=== PATIENT | female | born 1960 | race Caucasian/White ===

== ENCOUNTER 2020-02-06 09:53 | Outpatient (CLI) | payer OTHER, SELFPAY ==
--- NOTE | 2020-02-06 09:57 | MM_ITS ---
WS: [id number] Exam: [place] [id number] Date/Time of Exam: 02/06/2020 10:01 AM Reason For Exam: SCREENING VIEWS: MLO and CC views both breasts. Comparison made with prior exam of 12/27/2017. Findings: There was no sign of mass, architectural distortion or suspicious calcification in either breast. Sc attered fibroglandular densities MM/[place] [id number] Impression: BI-RADS: 2-Benign FOLLOW-UP: 1 Year Follow-up This mammogram was also analyzed by the Computer Aided Detection System R2 Imag e Facial Operator.
== END 2020-02-06 09:54 | disposition home or self-care (01) ==
LOC: RADSHAW 09:55
PROVIDERS: Family Provider Family Medicine; PCP Family Medicine; Visit Provider Obstetrics & Gynecology
DX: Z12.31 Encounter for screening mammogram for malignant neoplasm of breast (principal)
CPT/HCPCS: 77067

== ENCOUNTER → 2020-03-20 00:01 | Outpatient (BNVA) | payer OTHER, SELFPAY | PROVIDERS: Family Provider Family Medicine; PCP Family Medicine; Visit Provider Obstetrics & Gynecology | DX: Z01.419 Encounter for gynecological examination (general) (routine) without abnormal findings (principal) | CPT/HCPCS: 82270 ==

== ENCOUNTER → 2021-04-08 14:50 | Outpatient (BNVA) | payer OTHER, SELFPAY | PROVIDERS: Family Provider Family Medicine; PCP Family Medicine; Visit Provider Nurse Practitioner Women's Health | DX: Z01.419 Encounter for gynecological examination (general) (routine) without abnormal findings (principal) | CPT/HCPCS: 87624 ==

== ENCOUNTER 2021-04-18 11:47 | Outpatient (CLI) | payer OTHER, SELFPAY ==
--- NOTE | 2021-04-18 11:55 | MM_ITS ---
WS: [id number] BILATERAL DIGITAL SCREENING MAMMOGRAPHY WITH CAD CLINICAL INFORMATION: SCREENING HISTORY: Screening mammogram. No current complaints. COMPARISON: February 06, 2020 TECHNIQUE: Bilateral CC and MLO views. FINDINGS: Scattered fibroglandular densities bilaterally. Punctate calcification left breast. No suspicious foc al mass, asymmetry, calcifications, or architectural distortion. No evidence of malignancy. MM/[place] [id number] IMPRESSION: BI-RADS: 2-Benign FOLLOW UP: 1 Year Follow-up Recommend return to annual screening mammography.
== END 2021-04-18 11:48 | disposition home or self-care (01) ==
LOC: RADSHAW 11:53
PROVIDERS: PCP Family Medicine; Visit Provider Family Medicine
DX: Z12.31 Encounter for screening mammogram for malignant neoplasm of breast (principal)
CPT/HCPCS: 77067

== ENCOUNTER → 2021-05-29 10:21 | Outpatient (BNVA) | payer OTHER, SELFPAY | PROVIDERS: PCP Family Medicine; Visit Provider Family Medicine | DX: M16.11 Unilateral primary osteoarthritis, right hip (principal); M25.551 Pain in right hip | CPT/HCPCS: 73502 ==

== ENCOUNTER 2021-08-04 06:00 | Outpatient (RCR) | payer OTHER, SELFPAY | END 2021-08-19 23:59 | disposition home or self-care (01) | LOC: GPT 06:00 | PROVIDERS: PCP Family Medicine; Referring Provider Orthopaedic Surgery; Visit Provider Orthopaedic Surgery | DX: M16.11 Unilateral primary osteoarthritis, right hip (principal) | CPT/HCPCS: 97110; 97162 ==

== ENCOUNTER 2021-08-20 06:00 | Outpatient (RCR) | payer OTHER, SELFPAY | END 2021-09-09 23:59 | disposition home or self-care (01) | LOC: GPT 06:00 | PROVIDERS: PCP Family Medicine; Referring Provider Orthopaedic Surgery; Visit Provider Orthopaedic Surgery | DX: M16.11 Unilateral primary osteoarthritis, right hip (principal) | CPT/HCPCS: 97110; 97112; 97140 ==

== ENCOUNTER → 2022-03-09 13:26 | Outpatient (BNVA) | payer OTHER, SELFPAY | PROVIDERS: PCP Family Medicine; Visit Provider Family Medicine | DX: R22.30 Localized swelling, mass and lump, unspecified upper limb (principal) | CPT/HCPCS: 73130 ==

== ENCOUNTER 2022-04-27 12:18 | Outpatient (CLI) | payer OTHER, SELFPAY ==
--- NOTE | 2022-04-27 13:11 | MM_ITS ---
WS: [id number] BILATERAL 3D TOMOSYNTHESIS DIGITAL SCREENING MAMMOGRAPHY WITH CAD CLINICAL INFORMATION: Z12.39 - Encounter for other screening for malignant neop... HISTORY: Screening mammogram. No current complaints. COMPARISON: 2021 TECHNIQUE: Bilateral CC and MLO views. FINDINGS: The breasts are composed of heterogeneous fibroglandular density tissue, which can limit the detectio n of small underlying mass lesions. No suspicious mass, asymmetry, calcifications, or architectural d istortion. No evidence of malignancy. A few incidental punctate calcifications. MM/[place] [id number] IMPRESSION: BI-RADS: 2-Benign FOLLOW UP: 1 Year Follow-up Recommend return to annual screening mammography.
== END 2022-04-27 12:19 | disposition home or self-care (01) ==
LOC: RAD 12:19
PROVIDERS: PCP Family Medicine; Visit Provider Nurse Practitioner Women's Health
DX: Z12.31 Encounter for screening mammogram for malignant neoplasm of breast (principal)
CPT/HCPCS: 77063; 77067

== ENCOUNTER 2023-04-28 12:43 | Outpatient (CLI) | payer OTHER, SELFPAY ==
--- NOTE | 2023-04-28 13:00 | XR_ITS ---
WS: [id number] DEXA (DUAL ENERGY X-RAY ABSORPTIOMETRY) Bone mineral density was performed using a Sulia machine. HISTORY: Z78.0 - Asymptomatic menopausal state COMPARISON: None available. Lumbar spine BMD (L1-L4): 1.143 g/cm2 T score: -0.3 Z score: -0.3 Total hip BMD: Left: 0.866 (g/cm2). T score: -1.1 (no units) Z score: -1.0 (no units) Left forearm BMD: 0.914 g/cm2. T score: 0.4 Z score: 1.4 10 year probability of a major osteoporotic fracture is 7.8%. IMPRESSION: OSTEOPENIA based upon the WHO classification for females.
--- NOTE | 2023-04-28 13:01 | MM_ITS ---
WS: [email or web address] BILATERAL 3D TOMOSYNTHESIS DIGITAL SCREENING MAMMOGRAPHY WITH CAD CLINICAL INFORMATION: Z12.31 - Encounter for screening mammogram for malignant ... HISTORY: Screening mammogram. No current complaints. COMPARISON: 2014 TECHNIQUE: Bilateral CC and MLO views. FINDINGS: The breasts are composed of heterogeneous fibroglandular density tissue, which can limit the detectio n of small underlying mass lesions. Increasing ovoid slightly spiculated asymmetric density measuring 9 mm RIGHT breast best seen on the cc view near the 12 o'clock position. Recommend RIGHT breast diag nostic mammography and ultrasound if persistent. LEFT breast is unremarkable. IMPRESSION: MM/[place] [id number] BI-RADS: 0-Incomplete: Need additional imaging evaluation FOLLOW UP: Need Additional Imaging Recommend RIGHT breast diagnostic mammography and ultrasound if persistent.
== END 2023-04-28 12:44 | disposition home or self-care (01) ==
LOC: RAD 12:43
PROVIDERS: PCP Family Medicine; Visit Provider Nurse Practitioner Women's Health
DX: Z12.31 Encounter for screening mammogram for malignant neoplasm of breast (principal); Z13.820 Encounter for screening for osteoporosis; Z78.0 Asymptomatic menopausal state; R92.323 Mammographic fibroglandular density, bilateral breasts; N64.89 Other specified disorders of breast
CPT/HCPCS: 77063; 77067; 77080

== ENCOUNTER → 2023-04-29 10:45 | Outpatient (BNVA) | payer OTHER, SELFPAY | PROVIDERS: PCP Family Medicine; Visit Provider Family Medicine | DX: D34 Benign neoplasm of thyroid gland (principal); T78.40XA Allergy, unspecified, initial encounter; Z79.899 Other long term (current) drug therapy | CPT/HCPCS: 80053; 84439; 84443; 85025 ==

== ENCOUNTER 2023-05-13 08:58 | Outpatient (CLI) | payer OTHER, SELFPAY ==
--- NOTE | 2023-05-13 09:00 | MM_ITS ---
WS: [id number] RIGHT 3D TOMOSYNTHESIS DIGITAL MAMMOGRAPHY WITH CAD CLINICAL INFORMATION: R92.8 - Other abnormal and inconclusive findings on diagn... HISTORY: Additional views COMPARISON: 2023 TECHNIQUE: 3 views of the right breast were obtained. FINDINGS: Scattered fibroglandular densities of the right breast. Small ovoid asymmetry is again seen posterior to the nipple and near the 12 o'clock position. This partially compresses out on the spot compressio n views. Ultrasound is pending. Ultrasound is pending. ULTRASOUND BREAST RIGHT TECHNIQUE: Ultrasound right breast focused area of concern. CLINICAL INFORMATION: R92.8 - Other abnormal and inconclusive findings on diagn... FINDINGS: Ultrasound RIGHT breast 11-1 o'clock position and posterior to the nipple. A few incidental dilated d ucts. No suspicious cystic or solid lesions. No suspicious lesions to target for biopsy. IMPRESSION: MM/[place] [id number] BI-RADS: 2-Benign FOLLOW UP: 1 Year Follow-up Recommend return to annual screening mammography.
--- NOTE | 2023-05-13 09:30 | US_ITS ---
WS: [email or web address] RIGHT 3D TOMOSYNTHESIS DIGITAL MAMMOGRAPHY WITH CAD CLINICAL INFORMATION: R92.8 - Other abnormal and inconclusive findings on diagn... HISTORY: Additional views COMPARISON: 2023 TECHNIQUE: 3 views of the right breast were obtained. FINDINGS: Scattered fibroglandular densities of the right breast. Small ovoid asymmetry is again seen posterior to the nipple and near the 12 o'clock position. This partially compresses out on the spot compressio n views. Ultrasound is pending. Ultrasound is pending. ULTRASOUND BREAST RIGHT TECHNIQUE: Ultrasound right breast focused area of concern. CLINICAL INFORMATION: R92.8 - Other abnormal and inconclusive findings on diagn... FINDINGS: Ultrasound RIGHT breast 11-1 o'clock position and posterior to the nipple. A few incidental dilated d ucts. No suspicious cystic or solid lesions. No suspicious lesions to target for biopsy. IMPRESSION: US/US breast RT limited* [id number] BI-RADS: 2-Benign FOLLOW UP: 1 Year Follow-up Recommend return to annual screening mammography.
== END 2023-05-13 08:59 | disposition home or self-care (01) ==
PROVIDERS: PCP Family Medicine; Visit Provider Nurse Practitioner Women's Health
DX: R92.321 Mammographic fibroglandular density, right breast (principal); N64.89 Other specified disorders of breast
CPT/HCPCS: 76642; 77061; G0279

== ENCOUNTER 2023-06-29 06:00 | Outpatient (RCR) | payer OTHER, SELFPAY | END 2023-07-20 23:59 | disposition home or self-care (01) | LOC: GPT 06:00 | PROVIDERS: Visit Provider Physician Assistant Surgical | DX: Z47.1 Aftercare following joint replacement surgery (principal); Z96.641 Presence of right artificial hip joint | CPT/HCPCS: 97110; 97140; 97161 ==

== ENCOUNTER 2023-07-21 06:00 | Outpatient (RCR) | payer OTHER, SELFPAY | END 2023-08-05 23:59 | disposition home or self-care (01) | LOC: GPT 06:00 | PROVIDERS: Visit Provider Physician Assistant Surgical | DX: Z47.1 Aftercare following joint replacement surgery (principal); Z96.651 Presence of right artificial knee joint | CPT/HCPCS: 97110; 97112 ==

== ENCOUNTER 2023-08-25 09:56 | Emergency (ER) | payer OTHER, SELFPAY ==
[2023-08-25 10:00] VITALS: BP 126/76; PULSE 100; TEMP 36.8; O2SAT 94; BMI 33.4
[2023-08-25 11:04] VITALS: BP 122/68; PULSE 86; RESP 18; O2SAT 92
--- NOTE | 2023-08-25 11:05 | CT_ITS ---
WS: [id number] CT ABDOMEN AND PELVIS WITH CONTRAST HISTORY: abd pain TECHNIQUE: Imaging performed of the abdomen and pelvis with IV contrast. Single phase imaging of the abdomen. Coronal and sagittal reformats are submitted. All CT scans at [facility] use at [address] one of these dose optimization techniques: automated exposure control; mA and/or kV adjustment per patient size (includes targeted exams where dose is matched to clinical indication); or iterative re construction. IV CONTRAST: Omnipaque 350; 100 mL IV. Oral contrast: No DLP: 1010.31 mGy.cm COMPARISON: None available. Lower thorax: Mild atelectasis and dependent changes at the lung bases. Heart is normal size. No hiat al hernia. Liver/biliary system: Normal size with no intrahepatic dilatation. Gallbladder: Normal. No gallstones or wall thickening. No pericholecystic fluid. Pancreas: Normal size pancreas and pancreatic duct. No adjacent inflammation. Spleen: Spleen is measuring top normal size at 13.0 cm. There are a few granulomata. Adrenal glands: Enlarged RIGHT adrenal gland with heterogeneity. Adrenal gland measures 4.6 x 3.4 cm and is well-circumscribed. There is an area of increased attenuation within the central enlarged adre nal gland. Hounsfield units are significantly elevated to 55. There is not a lot of adjacent soft tis mono stranding. LEFT adrenal gland is normal. Right kidney: Normal. Left kidney: Normal. Aorta: Mild atherosclerosis with no aneurysm. Good opacification of the celiac axis and SMA. Lymphadenopathy: None. Free fluid: None. GI tract: Normal stomach. No small bowel obstruction. No colitis. RIGHT colonic constipation. No appe ndicitis. Abdominal wall: Fat containing umbilical hernia. Pelvis: No free fluid or adenopathy within the pelvis. Bones: Prior RIGHT hip arthroplasty. CT/CT abdomen pelvis w con* [id number] IMPRESSION: 1. No GI tract obstruction. 2. No renal obstruction. 3. RIGHT adrenal mass measures 4.6 x 3.4 cm with mixed attenuation. There is a n area of increased attenuation centrally which could represent an area of adre nal hemorrhage. This can be further evaluated on a nonemergent basis by MRI or CT adrenal protocol. 4. Mild atherosclerosis aorta. 5. No adenopathy. 6. Spleen is top normal size.
--- NOTE | 2023-08-25 11:05 | XR_ITS ---
WS: [id number] XR chest 1V portable [id number] REASON FOR EXAM: fever FINDINGS: Moderate tortuosity of the thoracic aorta. Heart at the upper limits of normal. Calcified granulomatous disease in both hemithoraces. No acute pulmonary parenchymal or pleural abnormality. No significant abnormality of the bony thorax. XR/XR chest 1V portable [id number] IMPRESSION: No acute chest abnormality.
[2023-08-25 11:27] LABS: Basophils % 0.7 %; Hematocrit 42.9 % (36-47); Lymphocytes # 0.9 10^3/uL (0.8-4.8); Lymphocytes % 33.2 %; Mean Corpuscular Hemoglobin 29.4 pg (27-33); Mean Corpuscular Volume 86.5 fl (85-98); Mean Platelet Volume 12.2 fL (7.4-10.4); Monocytes # 0.2 10^3/uL (0.2-0.9); Monocytes % 6.4 %; Neutrophils # 1.66 10^3/uL (1.8-7.7); Neutrophils % 58.6 %; Nucleated Red Blood Cells % 0 %; Platelet Count 84 10^3/cmm (157-399); Red Blood Count 4.96 10^6/uL (3.85-5.65); Red Cell Distribution Width 13.2 % (12.1-15.1); White Blood Count 2.83 10^3/uL (3.29-11.43)
[2023-08-25 11:29] LABS: Add Urine Microscopic? NO; Charge for UA Resulting for Rev
[2023-08-25 11:34] VITALS: BP 101/69; PULSE 93; O2SAT 90
[2023-08-25 11:39] LABS: Bilirubin Urine Neg (Negative); Blood Urine Neg (Negative); Glucose Urine UA Norm (Normal); Ketones Urine Negative (Negative); Leukocyte Esterase Urine Negative (Negative); Nitrate Urine Negative (Negative); Protein Urine Neg (Negative); Sulfosalicylic Acid Urine Negative (Negative); Urine Appearance Clear (CLEAR); Urine Color Yellow (Yellow); Urobilinogen Urine Norm (Negative); pH Urine 8 (5-7)
[2023-08-25 11:47] LABS: Alanine Aminotransferase 179 U/L (0-33); Albumin Level 3.9 g/dL (3.5-5.2); Alkaline Phosphatase 323 U/L (35-105); Anion Gap 17.4 (5-19); Aspartate Amino Transferase 122 U/L (0-32); Blood Urea Nitrogen 10 mg/dL (8-23); Calcium 8.7 mg/dL (8.5-10.5); Carbon Dioxide 24 mmol/L (22-29); Chloride 92 mmol/L (98-107); Creatinine Clr Calc Pharmacy 92.3856; Globulin 2.8 g/dL (1.3-4.6); Glomerular Filtration Rate 73.2 mL/min (90-130); Glucose 103 mg/dL (65-115); Lipase 29 U/L (13-60); Osmolality Calculated 269 mOsm/kg (285-295); Potassium 3.4 mmol/L (3.5-5.1); Sodium 130 mmol/L (136-145); Total Bilirubin 0.9 mg/dL (0.15-1.2); Total Protein 6.7 g/dL (6.6-8.7)
--- NOTE | 2023-08-25 11:51 | ED_ITS ---
HPI - Abdominal Pain 2 General: Chief Complaint: Abdominal Pain Stated Complaint: fever, n/v, abd pain Time Seen by Provider: 08/25/23 11:01 Source: patient Mode of arrival: ambulatory Limitations: no limitations History of Present Illness: 62-year-old female who states that over the last 3 to 4 days she has not been feeling well states she has had some nausea vomiting abdominal cramping she is also had a slight cough and fevers with bodyaches. She denies any dysuria states her abdominal pain is diffuse rates it a 2 out of 10. Denies sore throat denies any sick contacts states she has been febrile at home she is afebrile here. Denies any worse improved factors. Associated Symptoms: Reports chills, fever(s), nausea and vomiting; Denies diarrhea and dysuria Review of Systems 2 Const: Reports: fever(s), chills and body aches; Denies: change in appetite Eyes: Denies: blurry vision or eye discomfort ENMT: Denies: throat pain or dental pain Card: Denies: chest pain Resp: Denies: dyspnea GI: Reports: abdominal pain, nausea and vomiting; Denies: diarrhea : Denies: dysuria Musc: Denies: neck pain or back pain Skin/Breast: Denies: rash Neuro: Denies: headache(s) PFSH ED 2 PFSH: Medical History Cystocele with rectocele No pertinent past medical history neghx: dm,thyroid,dvt/pe PCP: Dr. Shelby Herpes zoster without complication (08/10/18) Hypertension Surgical History History of hip replacement (~09/18/21) Right hip S/P LASIK surgery of both eyes (~2008) History of thyroidectomy, subtotal (~12/1990) Right; Tyroid adenoma. H/O section (~02/1986) Performed by Dr. Head in [place], [place]. S/P endometrial ablation (12/03/06) Hysteroscopic with [employer]. Diagnosis: Menorrhagia, dysmenorrhea. Performed by Dr. Vic Christine at [facility] in [place], [place]. S/P endometrial ablation (~2004) [employer]. Procedure terminated and not completed. Performed by Dr. Billingsley. S/P ovarian cystectomy (~1966) Right ruptured ovarian cyst. S/P conization of cervix (~1991) Family History Father Hypertension Diabetes Mother Hypercholesteremia Heart disease Denies family history of Colon cancer Ovarian cancer Breast cancer Uterine cancer Thyroid disease Stroke Physical Exam 2 Const: COMMON NORMALS: no acute distress, patient oriented x3 and healthy appearing HENMT: COMMON NORMALS: normocephalic and atraumatic HEAD & SCALP: n ormocephalic and atraumatic Neck/C-Spine: COMMON NORMALS: full ROM and supple Chest: COMMONS NORMALS: normal inspection of the chest Resp: COMMON NORMALS: normal respiratory effort, No retractions, No use of accessory muscles and clear to auscultation bilaterally AUSCULTATION: clear to auscultation bilaterally Cardio: COMMON NORMALS: regular rate, regular rhythm and No murmurs present (Cardio) RATE: regular rate RHYTHM: regular rhythm GI: COMMON NORMALS: Normal to inspection, nondistended, normoactive bowel sounds present, Soft to palpation, non-tender and no masses PALPATION: Yes Soft to palpation Extremity: COMMON NORMALS: normal to inspection and full ROM Neuro: COMMON NORMALS: patient oriented x3, moves all extremities and no focal motor deficits Psych: COMMON NORMALS: mental status grossly normal, Normal thought process present and cooperative THOUGHT PROCESS: Normal thought process present Skin: COMMON NORMALS: no rashes or lesions noted and no wounds GENERAL SKIN EXAM: no rashes or lesions noted Course 2 Vital Signs: Vital signs: Vital Signs Temperature 98.2 F 08/25/23 10:00 Pulse Rate 94 08/25/23 13:36 Respiratory Rate 18 08/25/23 13:36 Blood Pressure 109/65 08/25/23 13:36 Pulse Oximetry 96 08/25/23 13:36 Oxygen Delivery Me thod Room Air 08/25/23 12:30 MDM - Abdominal Pain Medical Decision Making Patient presents with fever body aches along with some abdominal pain vomiting she is also had a cough is likely a viral syndrome imaging shows no signs of infection urine analysis was normal did have a slight leukopenia pi?a could be due from the viral syndrome I did inform her of the adrenal mass seen on the CAT scan she is to follow-up with PCP for the adrenal mass to recheck her WBC. I informed her she worsen she is return she understands agrees to plan Medical Records I reviewed the patient's medical records. Lab Data I reviewed the patient's lab results. 08/25/23 11:15 08/25/23 11:15 Labs/Radiology: Radiology Impressions Abdomen/Pelvis CT 08/25/23 11:05 IMPRESSION: 1. No GI tract obstruction. 2. No renal obstruction. 3. RIGHT adrenal mass measures 4.6 x 3.4 cm with mixed attenuation. There is an area of increased attenuation centrally which could represent an area of adrenal hemorrhage. This can be further evaluated on a nonemergent basis by MRI or CT adrenal protocol. 4. Mild atherosclerosis aorta. 5. No adenopathy. 6. Spleen is top normal size. Chest X-Ray 08/25/23 11:05 IMPRESSION: No acute chest abnormality. Laboratory Results WBC 2.83 10^3/uL (3.29-11.43) L 08/25/23 11:15 RBC 4.96 10^6/uL (3.85-5.65) 08/25/23 11:15 Hgb 14.60 g/dL (11.27-16.99) 08/25/23 11:15 Hct 42.9 % (36-47) 08/25/23 11:15 MCV 86.5 fl (85-98) 08/25/23 11:15 MCH 29.4 pg (27-33) 08/25/23 11:15 MCHC 34.0 g/dL (30-55) 08/25/23 11:15 RDW 13.2 % (12.1-15.1) 08/25/23 11:15 Plt Count 84 10^3/cmm (157-399) L 08/25/23 11:15 MPV 12.2 fL (7.4-10.4) H 08/25/23 11:15 Neut % (Auto) 58.6 % 08/25/23 11:15 Lymph % (Auto) 33.2 % 08/25/23 11:15 Lipscomb % (Auto) 6.4 % 08/25/23 11:15 Eos % (Auto) 0.0 % 08/25/23 11:15 Baso % (Auto) 0.7 % 08/25/23 11:15 Neut # (Auto) 1.66 10^3/uL (1.8-7.7) L 08/25/23 11:15 Lymph # (Auto) 0.9 10^3/uL (0.8-4.8) 08/25/23 11:15 Lipscomb # (Auto) 0.2 10^3/uL (0.2-0.9) 08/25/23 11:15 Eos # (Auto) 0.0 10^3/uL (0.0-0.8) 08/25/23 11:15 Baso # (Auto) 0.0 10^3/uL (0.0-0.1) 08/25/23 11:15 Nucleated RBC % (auto) 0 % 08/25/23 11:15 Nucleated RBCs # 0.0 /100WBC 08/25/23 11:15 Sodium 130 mmol/L (136-145) L 08/25/23 11:15 Potassium 3.4 mmol/L (3.5-5.1) L 08/25/23 11:15 Chloride 92 mmol/L (98-107) L 08/25/23 11:15 Carbon Dioxide 24 mmol/L (22-29) 08/25/23 11:15 Anion Gap 17.4 (5-19) 08/25/23 11:15 BUN 10 mg/dL (8-23) 08/25/23 11:15 Creatinine 0.8 mg/dL (0.5-0.9) 08/25/23 11:15 GFR Calculation 73.2 mL/min (90-130) L 08/25/23 11:15 Glucose 103 mg/dL (65-115) 08/25/23 11:15 Calculated Osmolality 269 mOsm/kg (285-295) L 08/25/23 11:15 Lactic Acid 1.0 mmol/L (0.5-2.2) 08/25/23 11:15 Calcium 8.7 mg/dL (8.5-10.5) 08/25/23 11:15 Total Bilirubin 0.9 mg/dL (0.15-1.2) 08/25/23 11:15 AST 122 U/L (0-32) H 08/25/23 11:15 ALT 179 U/L (0-33) H 08/25/23 11:15 Alkaline Phosphatase 323 U/L (35-105) H 08/25/23 11:15 Total Protein 6.7 g/dL (6.6-8.7) 08/25/23 11:15 Albumin 3.9 g/dL (3.5-5.2) 08/25/23 11:15 Globulin 2.8 g/dL (1.3-4.6) 08/25/23 11:15 Lipase 29 U/L (13-60) 08/25/23 11:15 Urine Color Yellow (Yellow) 08/25/23 11:15 Urine Appearance Clear (CLEAR) 08/25/23 11:15 Urine pH 8 (5-7) H 08/25/23 11:15 Ur Specific [place] 1.010 (1.005-1.030) 08/25/23 11:15 Urine Protein Neg (Negative) 08/25/23 11:15 Urine Glucose (UA) Norm (Normal) 08/25/23 11:15 Urine Ketones Negative (Negative) 08/25/23 11:15 Urine Blood Neg (Negative) 08/25/23 11:15 Urine Nitrate Negative (Negative) 08/25/23 11:15 Urine Bilirubin Neg (Negative) 08/25/23 11:15 Prot Sulfosalicylic Acd Negative (Negative) 08/25/23 11:15 Urine Urobilinogen Norm mg/dL (Negative) 08/25/23 11:15 Ur Leukocyte Esterase Negative (Negative) 08/25/23 11:15 SARS-CoV-2 Ag (Rapid) negative (Negative) 08/25/23 11:15 All radiology interpretation(s) finalized by discharge Discharge Plan Discharge Patient Disposition: Home Clinical Impression: Abdominal pain, Viral syndrome Condition: Stable Prescriptions: New ondansetron 4 mg tablet,disintegrating 4 mg PO Q6H PRN (Reason: nausea and vomiting) Qty: 14 0RF No Action coenzyme Q10 [Co Q-10] 200 mg capsule 200 mg PO DAILY paroxetine HCl [Paxil] 20 mg tablet 20 mg PO DAILY Qty: 30 11RF estradiol [Estrace] 0.01 % (0.1 mg/gram) cream 1 g vaginal .2-3 times weekly Qty: 42.5 3RF Rx Instructions: space out doses olopatadine [Eye Allergy Itch-Redness Rlf] 0.1 % drops 1 drp ophthalmic (eye) BID PRN (Reason: ALLERGIES) Rx Instructions: separate doses by at least 6-8 hours ibuprofen 200 mg tablet 600 mg PO Q6H PRN (Reason: Pain) loratadine [Claritin] 10 mg tablet 10 mg PO DAILY PRN (Reason: ALLERGIES) potassium gluconate 595 mg (99 mg) tablet 595 mg PO DAILY diphenhydramine HCl [Benadryl] 25 mg capsule 25 mg PO Q8H PRN (Reason: ALLERGIES) lisinopril 10 mg tablet 10 mg PO DAILY Qty: 90 3RF triamterene-hydrochlorothiazid 37.5-25 mg tablet 1 tab PO DAILY Qty: 90 3RF Glucosamine-Chondroitin Complx 500-400 mg Tablet 1 tab PO DAILY Calcium 600 + D(3) 600 mg-10 mcg (400 unit) Tablet 1 tab PO DAILY One Daily For Women 18-0.4 mg Tablet 1 tab PO DAILY Discharge Orders: Discharge ED (Routine); Ordered 08/25/23 Ordered By: Selene Mendiola Referrals: Robert Guzman DO [Primary Care Provider] - 4-7 days Discharge Diet: Advance as tolerated Discharge Activity: Resume usual activity Patient Instructions: Abdominal Pain (ED) Coding Level of Care Code 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
[2023-08-25 11:52] LABS: Slide Review Slide Review Perform
[2023-08-25] MEDS: sodium chloride 0.9% 1,000 ML 999 ML IV (11:56)
[2023-08-25 12:00] VITALS: PULSE 89; O2SAT 90
[2023-08-25] MEDS: iohexol 350 mg/mL 500 mL Btl (per mL) IV (12:00)
[2023-08-25] MEDS: ondansetron 2 mg/ML SDV 2 mL 4 MG IVP (12:28)
[2023-08-25] MEDS: ketorolac 30 mg/mL INJ 15 MG IVP (12:29)
[2023-08-25 12:30] VITALS: BP 106/63; O2SAT 94
--- NOTE | 2023-08-25 12:58 | PC.NURSE ---
Assumed care of patient from Sherie HERNANDEZ @ [phone]- rounding with patient, she reports that her pain is 0/10 while she is laying still. No needs at this time.
[2023-08-25 13:00] LABS: SARS Covid-2 Antigen negative (Negative)
[2023-08-25 13:36] VITALS: BP 109/65; PULSE 94; RESP 18; O2SAT 96
[2023-08-25 13:47] LABS: Adenovirus Not Detected (NOT DETECT); Chlamydia Pneumoniae Not Detected (NOT DETECT); Coronavirus 229E,HKU1,NL63,OC4 Not Detected (NOT DETECT); Human Metapneumovirus Not Detected (NOT DETECT); Human Rhinovirus/Enterovirus Not Detected (NOT DETECT); Influenza A Not Detected (NOT DETECT); Influenza A H1 Not Detected (NOT DETECT); Influenza A H1-2009 Not Detected (NOT DETECT); Influenza A H3 Not Detected (NOT DETECT); Influenza B Not Detected (NOT DETECT); Mycoplasma Pneumoniae Not Detected (NOT DETECT); Parainfluenza Virus Type 1 Not Detected (NOT DETECT); Parainfluenza Virus Type 2 Not Detected (NOT DETECT); Parainfluenza Virus Type 3 Not Detected (NOT DETECT); Parainfluenza Virus Type 4 Not Detected (NOT DETECT); Respiratory Syncytial Virus A Not Detected (NOT DETECT); Respiratory Syncytial Virus B Not Detected (NOT DETECT); SARS-COV-2 Not Detected (NOT DETECT)
== END 2023-08-25 13:42 | disposition home or self-care (01) ==
PROVIDERS: Emergency Medicine; Emergency Provider Emergency Medicine; PCP Family Medicine
DX: B34.9 Viral infection, unspecified (principal); R10.9 Unspecified abdominal pain; Z11.52 Encounter for screening for COVID-19; I10 Essential (primary) hypertension
CPT/HCPCS: 36415; 71045; 74177; 80053; 81003; 83605; 83690; 85025; 87426; 87486; 87581; 87633; 96361; 96374; 96375; 99285; J1885; J2405; J7030; Q9967

== ENCOUNTER → 2023-09-02 13:20 | Outpatient (BNVA) | payer OTHER, SELFPAY | PROVIDERS: PCP Family Medicine; Visit Provider Family Medicine | DX: E27.8 Other specified disorders of adrenal gland (principal); R74.01 Elevation of levels of liver transaminase levels; D34 Benign neoplasm of thyroid gland; T78.40XA Allergy, unspecified, initial encounter | CPT/HCPCS: 80053 ==

== ENCOUNTER → 2023-09-13 09:33 | Outpatient (BNVA) | payer OTHER, SELFPAY | PROVIDERS: PCP Family Medicine; Visit Provider Family Medicine | DX: R74.01 Elevation of levels of liver transaminase levels (principal) | CPT/HCPCS: 86705; 86706; 86709; 86803; 87340 ==

== ENCOUNTER 2023-09-20 14:31 | Outpatient (CLI) | payer OTHER, SELFPAY ==
--- NOTE | 2023-09-20 14:35 | MR_ITS ---
WS: [id number] MRI ADRENAL GLANDS WITH AND WITHOUT CONTRAST. COMPARISON: CT 08/25/2023 Multiplanar, multisequence imaging is performed with and without contrast. MultiHance 20 mL. Well-circumscribed enlarged RIGHT adrenal gland mass is mildly heterogeneous. Mass measures 4.5 x 2.7 cm. No increase in size since the CT of 08/25/2023. This is a well-circumscribed RIGHT adrenal gland m ass with a heterogeneous appearance. There is an area of increased T2 signal which persists on the no ncontrast study in the central gland measuring 1.5 x 1.0 cm. On the out of phase imaging there is a s ignificant decrease of signal within the majority of the RIGHT adrenal gland consistent with benign a denoma. In the central gland the previously described area of increased T2 signal does not completely lose signal. On the postcontrast imaging there is enhancement within the central nodule suggesting t his is not an adenoma. On the postcontrast imaging the heterogeneous portion of the RIGHT adrenal gland and masses with mild washout on the more delayed imaging. The area of abnormal enhancement is 1.3 x 1.5 cm. The LEFT adrenal gland is normal. Mild hepatic steatosis. Focal fatty sparing along the falciform lig ament. Gallbladder is negative. Normal pancreas. No renal mass. MR/MR adrenals wo/w con [id number] IMPRESSION: 1. RIGHT adrenal gland mass measures 4.5 x 2.7 cm. Majority of this mass loses signal on out of phase imaging without enhancement suggesting benign adenoma. 2. Within the adenoma is an area of enhancement and increased T2 signal on the precontrast exam. This mass measures 1.3 x 1.5 cm. With the enhancement and si gnal abnormalities differential includes small pheochromocytoma, metastatic dis ease and adrenocortical neoplasm. PET/CT may be of benefit. Consider follow-up imaging evaluation by MRI in 3 months. With and without contrast exam will need to be obtained.
[2023-09-20] MEDS: gadobenate dimeglumine 20 mL vial IV (15:13)
== END 2023-09-20 14:32 | disposition home or self-care (01) ==
LOC: RAD 14:32
PROVIDERS: PCP Family Medicine; Visit Provider Family Medicine
DX: E27.8 Other specified disorders of adrenal gland (principal)
CPT/HCPCS: 74183; A9577

== ENCOUNTER 2024-05-03 09:18 | Emergency (ER) | payer OTHER, SELFPAY ==
[2024-05-03 09:19] VITALS: BP 147/111; PULSE 83; RESP 18; TEMP 36.7; O2SAT 90; BMI 34.9
[2024-05-03 09:30] VITALS: O2SAT 92
--- NOTE | 2024-05-03 09:45 | CT_ITS ---
WS: [email or web address] CT HEAD TECHNIQUE: Noncontrast CT of the head obtained from the skullbase to the vertex. CLINICAL INFORMATION: Trauma COMPARISON: None. DLP: 1506.[address] scans at [facility] use at least one of these dose optimization techniques: automated exposure control; mA and/or kV adjustment per patient size (includes targeted exams where dose is matched to clinical indication); or iterative reconstruction. FINDINGS: No evidence of intracranial hemorrhage or mass effect. Ventricular system and basal cisterns are patent. Mild small vessel changes with no significant parenchymal volume loss. No extra-axial fluid collections. No evidence of mass or mass effect. Mild polypoid mucosal thickening in the paranasal sinuses. Mastoid air cells are well aerated. CT/CT head wo con* [id number] IMPRESSION: 1. No evidence of intracranial hemorrhage or mass effect. 2. No acute intracranial findings.
--- NOTE | 2024-05-03 09:45 | CT_ITS ---
WS: [email or web address] CT CHEST, ABDOMEN, AND PELVIS TECHNIQUE: Contrast-enhanced CT of the chest, abdomen, and pelvis with coronal and sagittal reformatted images. CLINICAL INFORMATION: Trauma COMPARISON: None. DLP: 1383.[address] scans at [facility] use at least one of these dose optimization techniques: automated exposure control; mA and/or kV adjustment per patient size (includes targeted exams where dose is matched to clinical indication); or iterative reconstruction. CT CHEST: No pneumothorax. Bibasilar atelectasis with patchy groundglass infiltrates in the lung bases likely infectious or inflammatory. No focal consolidation. No pleural fluid. Calcified granulomas. No evidence of mediastinal hematoma. Pulsation and respiratory artifact in the ascending thoracic aorta. Thoracic aorta is otherwise normal in appearance. No evidence of acute aortic injury. Surgical clips in the thyroid bed partially visualized. Normal caliber descending thoracic aorta. Normal thoracic spine. CT ABDOMEN AND PELVIS: Hepatic steatosis. Normal spleen. Normal GE junction. Normal pancreatic parenchymal enhancement. Normal portal vein and splenic vein. Resection of the RIGHT adrenal gland. Tiny LEFT adrenal nodule likely adenoma measuring 7 mm. Normal renal parenchymal enhancement. No hydronephrosis. Celiac and SMA are patent. Normal caliber abdominal aorta. Aortic calcification. RIGHT ALBERTO degrades images in the pelvis. Normal sigmoid colon. Prior RIGHT ventral abdominal wall hernia repair. No free fluid in the abdomen or pelvis. CT/CT chest abdpel w/*[id number] IMPRESSION: 1. No acute traumatic findings in the abdomen or pelvis. 2. Bibasilar atelectasis with slight patchy groundglass opacities likely infec tious or inflammatory. 3. Respiratory and pulsation artifact in the ascending thoracic aorta which is otherwise normal in appearance. 4. No other remarkable findings.
--- NOTE | 2024-05-03 09:45 | CT_ITS ---
WS: [email or web address] CT CERVICAL TRAUMA TECHNIQUE: Noncontrast CT of the cervical spine with coronal and sagittal reformatted images. CLINICAL INFORMATION: Trauma COMPARISON: None. DLP: 1506.[address] scans at [facility] use at least one of these dose optimization techniques: automated exposure control; mA and/or kV adjustment per patient size (includes targeted exams where dose is matched to clinical indication); or iterative reconstruction. FINDINGS: Straightening of the normal cervical lordosis. Normal craniocervical junction. Normal C1-C2 articulation. Dens is normal in appearance. Normal occipital condyles. No high-grade spinal canal narrowing. Normal C1 ring. No evidence of acute fracture or dislocation. Normal prevertebral soft tissues. Mastoids air cells are well aerated. CT/CT cervical spin wo con* [id number] IMPRESSION: No evidence of acute fracture or dislocation.
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
[2024-05-03] MEDS: ondansetron 2 mg/ML SDV 2 mL 4 MG IVP (10:27)
[2024-05-03] MEDS: morphine 4 mg/mL SDV 1 mL IVP (10:27)
[2024-05-03] MEDS: ketorolac 30 mg/mL INJ IVP (10:27)
[2024-05-03 10:36] LABS: Basophils # 0.1 10^3/uL (0.0-0.1); Basophils % 0.6 %; Eosinophils # 0.1 10^3/uL (0.0-0.8); Eosinophils % 1.4 %; Hematocrit 44.8 % (36-47); Lymphocytes # 1.9 10^3/uL (0.8-4.8); Lymphocytes % 20.1 %; Mean Corpuscular HGB Conc 32.8 g/dL (30-55); Mean Corpuscular Hemoglobin 29.3 pg (27-33); Mean Corpuscular Volume 89.4 fl (85-98); Mean Platelet Volume 11.6 fL (7.4-10.4); Monocytes # 0.6 10^3/uL (0.2-0.9); Monocytes % 6.6 %; Neutrophils # 6.51 10^3/uL (1.8-7.7); Neutrophils % 70.5 %; Nucleated Red Blood Cells % 0 %; Platelet Count 186 10^3/cmm (157-399); Red Blood Count 5.01 10^6/uL (3.85-5.65); Red Cell Distribution Width 13.2 % (12.1-15.1); White Blood Count 9.24 10^3/uL (3.29-11.43)
[2024-05-03 10:55] LABS: Alanine Aminotransferase 17 U/L (0-33); Albumin Level 4.4 g/dL (3.5-5.2); Alkaline Phosphatase 68 U/L (35-105); Anion Gap 15.8 (5-19); Aspartate Amino Transferase 17 U/L (0-32); Blood Urea Nitrogen 10 mg/dL (8-23); Calcium 9.3 mg/dL (8.5-10.5); Carbon Dioxide 25 mmol/L (22-29); Chloride 97 mmol/L (98-107); Creatinine Clr Calc Pharmacy 106.6811; Globulin 2.5 g/dL (1.3-4.6); Glomerular Filtration Rate 85.1 mL/min (90-130); Glucose 120 mg/dL (65-115); Osmolality Calculated 278 mOsm/kg (285-295); Potassium 3.8 mmol/L (3.5-5.1); Sodium 134 mmol/L (136-145); Total Bilirubin 0.4 mg/dL (0.15-1.2); Total Protein 6.9 g/dL (6.6-8.7)
[2024-05-03 11:06] VITALS: PULSE 89; RESP 16; O2SAT 94
[2024-05-03 11:07] VITALS: PULSE 86; O2SAT 93
[2024-05-03 12:00] VITALS: BP 123/64; PULSE 91; O2SAT 94
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
[2024-05-03] MEDS: HYDROcodone-acetaminophen 5-325 mg Tablet 1 TAB PO (12:40)
[2024-05-03 13:27] VITALS: BP 125/88; PULSE 94; O2SAT 95
== END 2024-05-03 13:29 | disposition home or self-care (01) ==
PROVIDERS: Emergency Provider Family Medicine; PCP Family Medicine
DX: R07.89 Other chest pain (principal); V89.2XXA Person injured in unspecified motor-vehicle accident, traffic, initial encounter; I10 Essential (primary) hypertension
CPT/HCPCS: 36415; 70450; 71260; 72125; 74177; 80053; 85025; 96374; 96375; 99285; J1885; J2270; J2405

== ENCOUNTER → 2024-09-14 09:17 | Outpatient (BNVA) | payer OTHER, SELFPAY | PROVIDERS: PCP Family Medicine; Visit Provider Family Medicine | DX: M17.12 Unilateral primary osteoarthritis, left knee (principal) | CPT/HCPCS: 73562 ==

== ENCOUNTER 2024-10-02 13:28 | Outpatient (CLI) | payer OTHER, SELFPAY ==
--- NOTE | 2024-10-02 13:35 | MM_ITS ---
WS: [id number] BILATERAL 3D TOMOSYNTHESIS DIGITAL SCREENING MAMMOGRAPHY WITH CAD CLINICAL INFORMATION: SCREENING HISTORY: Screening mammogram. No current complaints. COMPARISON: 2023 TECHNIQUE: Bilateral CC and MLO views. FINDINGS: Scattered fibroglandular densities bilaterally. No suspicious focal mass, asymmetry, calcifications, or architectural distortion. No evidence of malignancy. Stable nodularity anterior RIGHT breast MM/MM scr BI tomosynthesis [id number] IMPRESSION: DENSITY: There are scattered areas of fibroglandular density. BI-RADS: 2 - Benign. FOLLOW UP: 1 Year Follow-up Recommend return to annual screening mammography.
== END 2024-10-02 13:29 | disposition home or self-care (01) ==
LOC: RAD 13:29
PROVIDERS: PCP Family Medicine; Visit Provider Nurse Practitioner Women's Health
DX: Z12.31 Encounter for screening mammogram for malignant neoplasm of breast (principal); R92.323 Mammographic fibroglandular density, bilateral breasts; N63.10 Unspecified lump in the right breast, unspecified quadrant
CPT/HCPCS: 77063; 77067